=== PATIENT | male | born 1995 | race African-American/Black ===

== ENCOUNTER 2019-10-21 05:22 | Emergency (ER) | payer OTHER ==
[2019-10-21 06:25] LABS: APPEARANCE,URINE CLEAR; BILIRUBIN,URINE NEGATIVE (NEGATIVE); COLOR,URINE YELLOW; GLUCOSE, URINE NEGATIVE (NEGATIVE); KETONES,URINE NEGATIVE (NEGATIVE); LEUKOCYTE ESTERASE,URINE TRACE (NEGATIVE); NITRITE,URINE NEGATIVE (NEGATIVE); PROTEIN,URINE NEGATIVE (NEGATIVE); URINE SPECIFIC GRAVITY 1.015; UROBILINOGEN,URINE NEGATIVE mg/dL (<2.0)
[2019-10-21] MEDS ORDERED: ACETAMINOPHEN 325 MG TABLET PO ONE (08:17)
[2019-10-21 08:44] LABS: ABSOLUTE EOSINOPHILS # (AUTO) 0.2 10^3/uL (0.0-0.6); ABSOLUTE LYMPHOCYTES (AUTO) 1.6 10^3/uL (0.5-4.7); ABSOLUTE MONOCYTES (AUTO) 0.6 10^3/uL (0.1-1.4); BASOPHILS % (AUTO) 0.4 % (0-2); EOSINOPHILS % (AUTO) 4.9 % (0-6); HEMATOCRIT 43.7 % (37.9-51.0); LYMPHOCYTES % (AUTO) 35.2 % (13-45); MEAN CORPUSCULAR HGB CONC 34.3 g/dL (32.0-36.0); MEAN CORPUSCULAR VOLUME 88 fl (80-97); MONOCYTES % (AUTO) 14.3 % (3-13); PLATELET COUNT 246 10^3/uL (150-450); RED BLOOD COUNT 4.99 10^6/uL (4.35-5.55); RED CELL DISTRIBUTION WIDTH 13.2 % (11.5-14.0); SEGMENTED NEUTROPHILS % (AUTO) 45.2 % (42-78); TOTAL CELLS COUNTED % (AUTO) 100 %; WHITE BLOOD COUNT 4.5 10^3/uL (4.0-10.5)
[2019-10-21 09:16] LABS: ALBUMIN 4.5 g/dL (3.5-5.0); ALKALINE PHOSPHATASE 68 U/L (38-126); ANION GAP 9 (5-19); ASPARTATE AMINO TRANSFERASE 31 U/L (17-59); BILIRUBIN,DIRECT 0.2 mg/dL (0.0-0.4); BILIRUBIN,TOTAL 0.5 mg/dL (0.2-1.3); BLOOD UREA NITROGEN 12 mg/dL (7-20); CALCIUM 9.8 mg/dL (8.4-10.2); CARBON DIOXIDE 30 mmol/L (22-30); CHLORIDE 101 mmol/L (98-107); GLUCOSE 93 mg/dL (75-110); POTASSIUM 4.4 mmol/L (3.6-5.0); TOTAL PROTEIN 7.8 g/dL (6.3-8.2)
--- NOTE | 2019-10-21 09:31 | ER Document Report ---
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 Also complains of pain with void. Denies testicular pain. Denies penile discharge. Denies urinary frequency or urgency. Reports left lower quad tender. Denies fever nausea vomiting diarrhea. Reports he just got back from a deployment. He reports has not been sexually active for 6 months, does not think he has STD. 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 Denies recent trauma. He reports he went to [facility] this morning for this pain with void but they treated him with Motrin and discharged home. He has discharge instructions with him that note STD testing but no results yet. TRAVEL OUTSIDE OF THE [place] IN LAST 30 DAYS: No - HPI Onset: Other - 2 days Onset/Duration: Persistent Quality of pain: Burning, Sharp Associated symptoms: None Exacerbated by: Other - Voiding Relieved by: Denies Similar symptoms previously: Yes Recently seen / treated by doctor: Yes - Related Data Allergies/Adverse Reactions: No Known Allergies Allergy (Verified 10/21/19 06:12) Past Medical History - General Information source: Patient - Social History Smoking Status: Never Smoker Cigarette use (# per day): No Frequency of alcohol use: None Drug Abuse: None Occupation: Active-duty [employer] [place] Family History: None Patient has suicidal ideation: No Patient has homicidal ideation: No - Medical History Medical History: Negative Past Surgical History: Reports: Hx Nose Surgery Review of Systems - Review of Systems Notes: Review HPI for review of systems., All other systems negative Physical Exam - Vital signs Vitals: Temp Pulse Resp BP Pulse Ox 98.2 F 68 16 146/68 H 99 10/21/19 05:23 10/21/19 05:23 10/21/19 05:23 10/21/19 05:23 10/21/19 05:23 - General General appearance: Appears well, Alert, Anxious In distress: None - HEENT Head: Normocephalic Eyes: Normal Conjunctiva: Normal Extraocular movements intact: Yes Mucous membranes: Moist Neck: Normal, Supple. No: Lymphadenopathy - Respiratory Respiratory status: No respiratory distress Chest status: Nontender Breath sounds: Normal Chest palpation: Normal - Cardiovascular Rhythm: Regular Heart sounds: Normal auscultation Murmur: No - Abdominal Inspection: Normal Distension: No distension Bowel sounds: Normal Tenderness: Tender - mid LLQ abd pain Organomegaly: No organomegaly - Genitourinary Notes: left inguinal lymph node swelling - Back Back: Normal, Nontender - Extremities General upper extremity: Normal ROM General lower extremity: Normal ROM, Normal weight bearing - Neurological Neuro grossly intact: Yes Cognition: Normal Orientation: AAOx4 Stephany Coma Scale Eye Opening: Spontaneous [place] Coma Scale Verbal: Oriented Stephany Coma Scale Motor: Obeys Commands Stephany Coma Scale Total: 15 Speech: Normal - Psychological Associated symptoms: Normal affect, Normal mood - Skin Skin Temperature: Warm Skin Moisture: Dry Skin Color: Normal Course - Re-evaluation Re-evalutation: 10/21/19 09:49 24-year-old male presents emergency department with complaints of pain with void for the past 2 days. He was evaluated at [facility] for same symptoms prior to arrival here with STD results pending. Patient reports they treated him with Motrin which was going to help him. Patient reports he is not been sexually active for 6 months. He denies symptoms while he was deployed. Labs are unremarkable testicular ultrasound unremarkable. Scrotum Ultrasound 10/21/19 08:11 IMPRESSION: 1. No testicular mass or evidence for testicular torsion. 2. No epididymitis. 3. No sizable hydrocele or varicocele. Laboratory 10/21/19 10/21/19 10/21/19 06:03 08:30 08:30 WBC 4.5 RBC 4.99 Hgb 15.0 Hct 43.7 MCV 88 MCH 30.0 MCHC 34.3 RDW 13.2 Plt Count 246 Lymph % (Auto) 35.2 Johnston % (Auto) 14.3 H Eos % (Auto) 4.9 Baso % (Auto) 0.4 Absolute Neuts (auto) 2.0 Absolute Lymphs (auto) 1.6 Absolute Monos (auto) 0.6 Absolute Eos (auto) 0.2 Absolute Basos (auto) 0.0 Seg Neutrophils % 45.2 Sodium 139.5 Potassium 4.4 Chloride 101 Carbon Dioxide 30 Anion Gap 9 BUN 12 Creatinine 0.89 Est GFR ( Amer) > 60 Est GFR (MDRD) Non-Af > 60 Glucose 93 Calcium 9.8 Total Bilirubin 0.5 Direct Bilirubin 0.2 Neonat Total Bilirubin Not Reportable Neonat Direct Bilirubin Not Reportable Neonat Indirect Bili Not Reportable AST 31 ALT 19 Alkaline Phosphatase 68 Total Protein 7.8 Albumin 4.5 Urine Color YELLOW Urine Appearance CLEAR Urine pH 6.0 Ur Specific [place] 1.015 Urine Protein NEGATIVE Urine Glucose (UA) NEGATIVE Urine Ketones NEGATIVE Urine Blood NEGATIVE Urine Nitrite NEGATIVE Urine Bilirubin NEGATIVE Urine Urobilinogen NEGATIVE Ur Leukocyte Esterase TRACE H Urine WBC (Auto) 9 Urine RBC (Auto) 3 Urine Ascorbic Acid NEGATIVE 10/21/19 09:49 Patient was instructed on all labs unremarkable ultrasound unremarkable. We discussed possible STD. He reports he would like to be treated for STD and he will call later for results. He was instructed on the importance of follow-up with his BAS. He verbalized understanding to all instructions. 10/21/19 12:30 STD cultures negative - Vital Signs Vital signs: Temp Pulse Resp BP Pulse Ox 97.5 F 63 16 134/77 H 99 10/21/19 10:50 10/21/19 10:50 10/21/19 10:50 10/21/19 10:50 10/21/19 10:50 - Laboratory Result Diagrams: 10/21/19 08:30 10/21/19 08:30 Laboratory results interpreted by me: 10/21/19 10/21/19 06:03 08:30 Johnston % (Auto) 14.3 H Ur Leukocyte Esterase TRACE H - Diagnostic Test Radiology reviewed: Image reviewed, Reports reviewed Discharge - Discharge Clinical Impression: Voiding pain, Possible exposure to STD Condition: Stable Disposition: HOME, SELF-CARE Instructions: Azithromycin ([facility]), Chlamydia ([facility]), Gonorrhea ([facility]), [facility], Rocephin ([facility]), Urinary Anesthetic Agent ([facility]) Additional Instructions: *You have been evaluated for pain while voiding, possible STD exposure *You may contact [facility] at [phone] for your STD the results in 2 hours. *You have been treated for gonorrhea and chlamydia with Rocephin and Zithromax. *Take Pyridium as prescribed for pain with void *Push fluids *Follow up with your BAS within 1 week for recheck *Return to ED for worsening condition, changes, needs Monitor your blood pressure. Your blood pressure was elevated today. This may be because you were anxious, in pain or because you need medication. It is important to follow up with your primary care provider for full evaluation. Prescriptions: Phenazopyridine HCl [Pyridium 200 mg Tablet] 200 mg PO TID #15 tablet Forms: Elevated Blood Pressure, Return to Work
--- NOTE | 2019-10-21 09:32 | RADIOLOGY REPORT (SQ) ---
EXAM DESCRIPTION: U/S SCROTUM W/DOPPLER COMPLETED DATE/TIME: 10/21/2019 9:13 am REASON FOR STUDY: pain with void COMPARISON: None. TECHNIQUE: Static and realtime dyson scale imaging of the scrotum and testes. Selected color Doppler and spectral images recorded to document blood flow. LIMITATIONS: None. FINDINGS: RIGHT: TESTICLE: The right testicle measures 3.6 x 2.9 x 2.5 cm. The echotexture of the testicular parenchy ma is homogeneous and on Doppler there is intact arterial inflow and venous outflow within it. There is no testicular mass. EPIDIDYMIS: Normal. HYDROCELE OR VARICOCELE: No. HERNIA OR EXTRA-TESTICULAR MASS: No. OTHER: No other findings. LEFT: TESTICLE: The left testicle measures 3.8 x 2.9 by 1.8 cm. The echotexture of the testicular parenchy ma is homogeneous and on Doppler there is intact arterial inflow and venous outflow within it. There is no testicular mass. EPIDIDYMIS: Normal. HYDROCELE OR VARICOCELE: No. HERNIA OR EXTRA-TESTICULAR MASS: No. OTHER: No other finding. IMPRESSION: 1. No testicular mass or evidence for testicular torsion. 2. No epididymitis. 3. No sizable hydrocele or varicocele. TECHNICAL DOCUMENTATION: JOB ID: [id number] 2010 [employer]- All Rights Reserved Reading location - IP/workstation name: [email or web address]
[2019-10-21] MEDS ORDERED: LIDOCAINE 1% INJ-PF (10 MG/ML) 30 ML SDV INJ ONE (09:55)
[2019-10-21] MEDS ORDERED: AZITHROMYCIN 250 MG TABLET PO ONE (09:55)
[2019-10-21] MEDS ORDERED: CEFTRIAXONE INJ 250 MG VIAL IM ONE (09:55)
[2019-10-21] MEDS ORDERED: PHENAZOPYRIDINE HCL 200 MG TABLET PO ONE (09:56)
[2019-10-21 10:27] LABS: CHLAM PCR NOT DETECTED (NOT DETECT)
[2019-10-21 10:52] VITALS: BP 134/77
== END 2019-10-21 10:50 | disposition home or self-care (01) ==
LOC: ER 05:22
DX: R30.9 Painful micturition, unspecified (principal); R10.32 Left lower quadrant pain; R10.814 Left lower quadrant abdominal tenderness; R59.0 Localized enlarged lymph nodes; Z20.2 Contact with and (suspected) exposure to infections with a predominantly sexual mode of transmission
CPT/HCPCS: 99284; 96372; 36415; 85025; 80053; 81001; 87491; 87591; 76870; 93976; J3490 ×2; J0696